=== PATIENT | female | born 1985 | race Caucasian/White ===

== ENCOUNTER 2018-12-09 18:54 | Emergency (ER) | payer MEDICAID ==
[2018-12-09] MEDS: SOD CHLORIDE 0.9% 500 ML IV (20:39)
[2018-12-09] MEDS: IBUPROFEN 600 MG TAB PO (20:41)
[2018-12-09] MEDS: ACETAMINOPHEN 500 MG TAB PO (20:41)
[2018-12-09 21:18] LABS: ADD UMIC YES; UR AMORPHOUS CRYSTAL FEW /HPF (NONE SEEN); UR ASCORBIC ACID NEGATIVE (NEGATIVE); UR BACTERIA FEW /HPF (NONE SEEN); UR BILIRUBIN (Dip) NEGATIVE (NEGATIVE); UR BLOOD (Dip) 3+ mg/dL (NEGATIVE); UR CLARITY SLIGHTLY CLOUDY (CLEAR); UR COLOR YELLOW (YELLOW); UR GLUCOSE (Dip) NEGATIVE (NEGATIVE); UR KETONES (Dip) NEGATIVE (NEGATIVE); UR LEUKOCYTE ESTERASE (Dip) 2+ Leu/ul (NEGATIVE); UR NITRITE (Dip) NEGATIVE (NEGATIVE); UR RBC 5 /HPF (0-5); UR SPECIFIC GRAVITY (Dip) 1.006 (1.003-1.030); UR SQUAMOUS EPITHELIAL CELL FEW /HPF (FEW); UR TOTAL PROTEIN (Dip) NEGATIVE (NEGATIVE); UR UROBILINOGEN (Dip) NEGATIVE (NEGATIVE); UR WBC 29 /HPF (0-5)
[2018-12-09] MEDS: CEFTRIAXONE 1 GM/50 ML (PMX) 50 ML IVPB (21:40)
== END 2018-12-09 23:11 | disposition home or self-care (01) ==
LOC: FTE 18:54
DX: N12 Tubulo-interstitial nephritis, not specified as acute or chronic (principal)
CPT/HCPCS: 81001; 81025; 87086; 87400; 96361; 96374; 99284-25